=== PATIENT | female | born 1940 | race Caucasian/White ===

== ENCOUNTER 2016-07-16 00:52 | Inpatient (IN) | payer OTHER ==
[~2016-07-16] VITALS: Ht 160 cm; Wt 113.5 kg
[~2016-07-16 00:52] MED LIST: ALPRAZOLAM0.25 MG PO; APRESOLINE50 MG PO; ASCORBIC ACID500 M3 PO; ATIVAN1 MG PO; AVELOX400 MG PO; Advair HFA 115/21 IH; BENICAR HCT 401 EAC1 PO; CADUET 10/801 TABLET PO; COLACE100 MG PO; COMPAZINE10 MG PO; CYPROHEPTADINE H4 M1 PO; CYPROHEPTADINE H4 MG PO; DELTASONE20 MG PO; DETROL LA4 MG PO; DUONEB3 ML IH; EFFER-K 20 MEQ20 MEQ PO; FLEXERIL10 MG PO; FLEXERIL5 MG PO; FLOVENT 22120 INHALA IH; FUROSEMIDE40 MG PO; ISORDIL TITRADOS5 MG SL; ISORDIL5 MG PO; K-DUR20 MEQ PO; K-LOR,KLOR-CON20 MEQ PO; LANTUS 3 M100 UNITS/ SC; LANTUS 3 M100 UNITS1 SC; LANTUS100 UNIT/1 SQ; LASIX40 MG PO; LEVOTHROID,SYN0.2 MG PO; LIDOCAINE PO; LIDODERM 5% P1 PATCH TD; LIPITOR10 MG PO; LIPITOR80 MG PO; LOPRESSOR100 M1 PO; LUMIGAN 0.50 DROP/22 BOTH EYES; LYRICA50 MG PO; Lantus 3 ml Solostar SC; MACROBID100 MG PO; METOPROLOL TAR100 MG PO; MS CONTIN,ORAMO60 MG PO; MS CONTIN60 MG PO; MS Contin,Oramorph S PO; NEXIUM40 MG PO; NIFEDIPINE ER30 MG PO; NITROSTAT,NITR0.4 M1 SL; NITROSTAT0.4 MG SL; NORVASC10 MG PO; NOVOLOG PE100 UNITS/ SC; OxyCODONE PO; PERCOCET 5/31 TABLET PO; PERIACTIN4 MG PO; POTASSIUM CHLO10 ME4 PO; PRED MILD BOTH EYES; PREDNISONE20 MG PO; PROCHLORPERAZIN10 MG PO; PROVENTIL HFA6.7 GM IH; PROVENTIL,2.5 MG/0.5 IH; Pred Forte 1%,Omnipr BOTH EYES; RESTASIS 01 DROP/0.4 BOTH EYES; RESTASIS1 EACH OP; SANCTURA XR60 MG PO; SINGULAIR10 MG PO; SPIRIVA1 INHALATI IH; SYNTHROID100 MCG PO; SYNTHROID200 MCG PO; SYNTHROID50 MCG PO; TOPROL XL50 MG PO; Tessalon Perle PO; Toprol XL PO; Tylenol Regular Stre PO; VENTOLIN HFA18 GM IH; VITAMIN D35000 UNIT PO; VITAMIN D5000 UNIT PO; VITAMIN E100 UNIT PO; XANAX0.25 MG PO; XOPENEX1.25 MG/3 IH
[2016-07-16 01:11] LABS: HEMATOCRIT 41.1 % (36.0-46.0); MCHC 33.1 G/DL (30.0-36.0); MCV 84.7 FL (83-99); MEAN PLAT.VOLUME 10.9 uM^3 (9.5-12.4); PLATELET COUNT 210 K/uL (156-360); RBC DIS.WIDTH-CV 13.8 % (11.8-14.6); RBC DIS.WIDTH-SD 42.4 % (39-53); RED BLOOD COUNT 4.85 M/uL (3.80-5.20); WHITE BLOOD COUNT 8.3 K/uL (4.1-10.2)
[2016-07-16 01:20] LABS: CHLORIDE 101 mEq/L (99-109); POTASSIUM 3.5 mEq/L (3.7-5.4); SODIUM 138 mEq/L (136-147)
[2016-07-16 01:21] LABS: GLUCOSE 338 mg/dL (70-99)
[2016-07-16 01:23] LABS: ANION GAP 11 MEQ/L (2-14)
[2016-07-16 01:26] LABS: GFR ESTIMATE (CALCULATED) > 59 mL/min/; UREA NITROGEN (BUN) 12 mg/dL (9-23)
[2016-07-16 01:32] LABS: TROP-I INTERPRETATION NEGATIVE; TROPONIN-I < 0.01 ng/mL (0.0-0.30)
[2016-07-16 01:37] LABS: PROTHROMBIN TIME 10.4 (9.2-11.2); PTT 27.2 (25-32)
[2016-07-16] MEDS ORDERED: LYRICA50 MG PO (01:55)
[2016-07-16] MEDS ORDERED: NIFEDIPINE ER30 MG PO (01:56)
[2016-07-16 02:22] LABS: ADD MIUA? NO; BILIRUBIN NEGATIVE; BLOOD NEGATIVE; COLOR YELLOW ((YELLOW)); GLUCOSE (STRIP) >=1000; KETONES NEGATIVE; LEUKOCYTES NEGATIVE; NITRITE NEGATIVE; PROTEIN (STRIP) 30; SPECIFIC GRAVITY 1.025 (1.000-1.030); UCUL ADDED? NO; UROBILINOGEN 0.2 MG/DL (0.2-1.0)
[2016-07-16 16:15] VITALS: BP 155/72
[2016-07-16 23:00] VITALS: BP 148/65
[2016-07-17 06:43] LABS: HEMATOCRIT 38.2 % (36.0-46.0); MCHC 32.2 G/DL (30.0-36.0); MEAN PLAT.VOLUME 11.9 uM^3 (9.5-12.4); PLATELET COUNT 203 K/uL (156-360); RBC DIS.WIDTH-CV 14.5 % (11.8-14.6); RBC DIS.WIDTH-SD 46.3 % (39-53); RED BLOOD COUNT 4.39 M/uL (3.80-5.20)
[2016-07-17 06:46] LABS: WHITE BLOOD COUNT 11.4 K/uL (4.1-10.2)
[2016-07-17 07:15] LABS: ANION GAP 8 MEQ/L (2-14); CHLORIDE 94 MEQ/L (99-109); GFR ESTIMATE (CALCULATED) 46 mL/min/; GLUCOSE 398 mg/dL (70-99); SAMPLE HEMOLYSIS CHECK 0; SAMPLE ICTERIC CHECK 0; SAMPLE LIPEMIA CHECK 0
[2016-07-17 07:21] LABS: SODIUM 131 MEQ/L (136-147); UREA NITROGEN (BUN) 28 mg/dL (9-23)
[2016-07-17 07:25] VITALS: BP 148/65
[2016-07-17 09:57] LABS: POINT-OF-CARE METER ID UU13113702
[2016-07-17 09:57] LABS: POINT-OF-CARE METER ID UU13113702
[2016-07-17 14:15] LABS: ANION GAP 8 MEQ/L (2-14); CHLORIDE 93 MEQ/L (99-109); GFR ESTIMATE (CALCULATED) 39 mL/min/; POTASSIUM 5.1 MEQ/L (3.7-5.4); SAMPLE HEMOLYSIS CHECK 0; SAMPLE ICTERIC CHECK 0; SAMPLE LIPEMIA CHECK 0; SODIUM 128 MEQ/L (136-147); UREA NITROGEN (BUN) 35 mg/dL (9-23)
[2016-07-17 14:18] LABS: GLUCOSE 410 mg/dL (70-99)
[2016-07-17 15:45] VITALS: BP 128/66
[2016-07-17 19:34] LABS: Estimated Average Glucose 246 mg/dL (70-123); HEMOGLOBIN A1c (GLYCOHEMOGLOB) 10.2 % HGB (Below 5.7)
[2016-07-17 21:40] VITALS: BP 155/56
[2016-07-17 21:41] LABS: BASE EXCESS 3.8 mEq/L (-3 to +3); BICARBONATE 25.7 mEq/L (22-26); PCO2 30 mm Hg (35-45); PO2 > 610 mm Hg (80-100); SITE LR; pH 7.54 (7.35-7.45)
[2016-07-17 21:42] LABS: COMMENTS - BLOOD GASES C+; DEVICE MASK VENT; FI02 100 %; MODE SPONT; PEEP 5 CM/H20; PRES. SUPPORT 10 CM/H2O; TOTAL RESP RATE 29 resp/min
[2016-07-17 22:00] VITALS: BP 124/61
[2016-07-17 22:00] LABS: HEMATOCRIT 39.1 % (36.0-46.0); MCH 27.7 PG (29.0-34.0); MCHC 32.5 G/DL (30.0-36.0); MCV 85.4 FL (83-99); MEAN PLAT.VOLUME 11.5 uM^3 (9.5-12.4); RBC DIS.WIDTH-CV 14.7 % (11.8-14.6); RBC DIS.WIDTH-SD 45.5 % (39-53); RED BLOOD COUNT 4.58 M/uL (3.80-5.20)
[2016-07-17 22:07] LABS: D-DIMER ELISA 0.55 mg/L FEU (< 0.57)
[2016-07-17 22:20] LABS: PLATELET COUNT 277 K/uL (156-360); WHITE BLOOD COUNT 19.8 K/uL (4.1-10.2)
[2016-07-17 22:21] LABS: TROP-I INTERPRETATION NEGATIVE; TROPONIN-I < 0.01 ng/mL (0.0-0.30)
[2016-07-17 22:30] VITALS: BP 119/48
[2016-07-17 23:00] VITALS: BP 123/45
[2016-07-17 23:26] LABS: METH RESISTANT S AUREUS PCR NEGATIVE (NEGATIVE)
[2016-07-17 23:28] LABS: PROBE CHECK PASS; SPECIMEN PROCESSING CONTROL PASS
[2016-07-18] VITALS (11 sets, daily range): BP systolic 116–165; BP diastolic 47–82
[2016-07-18 05:01] LABS: ANION GAP 14 MEQ/L (2-14); CHLORIDE 93 MEQ/L (99-109); GFR ESTIMATE (CALCULATED) 31 mL/min/; GLUCOSE 305 mg/dL (70-99); POTASSIUM 5.3 MEQ/L (3.7-5.4); SAMPLE HEMOLYSIS CHECK 0; SAMPLE ICTERIC CHECK 0; SAMPLE LIPEMIA CHECK 0; SODIUM 129 MEQ/L (136-147); UREA NITROGEN (BUN) 44 mg/dL (9-23)
[2016-07-18 06:04] LABS: HEMATOCRIT 36.4 % (36.0-46.0); MCH 27.9 PG (29.0-34.0); MCHC 32.4 G/DL (30.0-36.0); MCV 86.1 FL (83-99); MEAN PLAT.VOLUME 11.8 uM^3 (9.5-12.4); PLATELET COUNT 216 K/uL (156-360); RBC DIS.WIDTH-CV 14.7 % (11.8-14.6); RED BLOOD COUNT 4.23 M/uL (3.80-5.20)
[2016-07-18 06:09] LABS: WHITE BLOOD COUNT 11.4 K/uL (4.1-10.2)
[2016-07-18 06:16] LABS: ANION GAP 9 MEQ/L (2-14); CHLORIDE 95 MEQ/L (99-109); GFR ESTIMATE (CALCULATED) 36 mL/min/; GLUCOSE 314 mg/dL (70-99); POTASSIUM 5.1 MEQ/L (3.7-5.4); SAMPLE HEMOLYSIS CHECK 0; SAMPLE ICTERIC CHECK 0; SAMPLE LIPEMIA CHECK 0; SODIUM 130 MEQ/L (136-147); UREA NITROGEN (BUN) 49 mg/dL (9-23)
[2016-07-18 12:18] LABS: POINT-OF-CARE METER ID UU14162636
[2016-07-18 16:32] LABS: BACTERIA NONE SEEN; EPITHELIAL CELLS RARE; MUCUS NONE SEEN; RED BLOOD CELLS NONE SEEN /HPF (0-5); WHITE BLOOD CELLS RARE /HPF (0-5)
[2016-07-18 16:33] LABS: CASTS NONE SEEN /LPF; CRYSTALS NONE SEEN
[2016-07-19] VITALS: BP 142/63
[2016-07-19 04:00] VITALS: BP 159/68
[2016-07-19 07:22] LABS: EOSINOPHIL (%) 0 % (0-5); HEMATOCRIT 38.2 % (36.0-46.0); IMMATURE GRANULOCYTE COUNT 0.1 K/uL; LYMPHOCYTE COUNT 0.4 K/uL (1.0-2.8); MCH 27.9 PG (29.0-34.0); MCHC 32.7 G/DL (30.0-36.0); MCV 85.3 FL (83-99); MEAN PLAT.VOLUME 11.6 uM^3 (9.5-12.4); MONOCYTE (%) 3.5 % (3-12); MONOCYTE COUNT 0.4 K/uL (0-0.8); NEUTROPHIL COUNT 10.6 K/uL (1.8-6.4); PLATELET COUNT 225 K/uL (156-360); RBC DIS.WIDTH-SD 46.9 % (39-53); RED BLOOD COUNT 4.48 M/uL (3.80-5.20); WHITE BLOOD COUNT 11.5 K/uL (4.1-10.2)
[2016-07-19 07:38] LABS: ANION GAP 9 MEQ/L (2-14); CHLORIDE 98 MEQ/L (99-109); GFR ESTIMATE (CALCULATED) 39 mL/min/; GLUCOSE 203 mg/dL (70-99); POTASSIUM 4.9 MEQ/L (3.7-5.4); SAMPLE HEMOLYSIS CHECK 0; SAMPLE ICTERIC CHECK 0; SAMPLE LIPEMIA CHECK 0; SODIUM 132 MEQ/L (136-147); UREA NITROGEN (BUN) 55 mg/dL (9-23)
[2016-07-19 08:00] VITALS: BP 139/69
[2016-07-19 11:53] LABS: POINT-OF-CARE METER ID UU14174225
[2016-07-19 12:00] VITALS: BP 146/67
[2016-07-19 15:00] VITALS: BP 140/70
[2016-07-19 16:41] LABS: POINT-OF-CARE METER ID UU14174225
[2016-07-19 19:58] VITALS: BP 133/67
[2016-07-20] VITALS: BP 159/73
[2016-07-20 04:00] VITALS: BP 154/77
[2016-07-20 07:53] VITALS: BP 146/65
[2016-07-20 10:22] LABS: ANION GAP 9 MEQ/L (2-14); CHLORIDE 99 MEQ/L (99-109); GFR ESTIMATE (CALCULATED) 42 mL/min/; GLUCOSE 218 mg/dL (70-99); POTASSIUM 4.7 MEQ/L (3.7-5.4); SAMPLE HEMOLYSIS CHECK 0; SAMPLE ICTERIC CHECK 0; SAMPLE LIPEMIA CHECK 0; SODIUM 135 MEQ/L (136-147); UREA NITROGEN (BUN) 55 mg/dL (9-23)
[2016-07-20 11:04] VITALS: BP 131/73
[2016-07-20 15:24] VITALS: BP 139/66
[2016-07-20 20:00] VITALS: BP 141/65
[2016-07-21] VITALS: BP 151/66
[2016-07-21 07:48] VITALS: BP 139/70
[2016-07-21 09:41] LABS: EOSINOPHIL (%) 0 % (0-5); HEMATOCRIT 40.6 % (36.0-46.0); IMMATURE GRANULOCYTE (%) 1.4 % (0.0-0.7); IMMATURE GRANULOCYTE COUNT 0.2 K/uL; LYMPHOCYTE COUNT 0.6 K/uL (1.0-2.8); MCH 28.3 PG (29.0-34.0); MCV 85.8 FL (83-99); MEAN PLAT.VOLUME 12.1 uM^3 (9.5-12.4); MONOCYTE (%) 9.3 % (3-12); NEUTROPHIL (%) 83.6 % (45-76); NEUTROPHIL COUNT 9.4 K/uL (1.8-6.4); PLATELET COUNT 234 K/uL (156-360); RBC DIS.WIDTH-CV 14.9 % (11.8-14.6); RBC DIS.WIDTH-SD 46.9 % (39-53); RED BLOOD COUNT 4.73 M/uL (3.80-5.20); WHITE BLOOD COUNT 11.2 K/uL (4.1-10.2)
[2016-07-21 09:58] LABS: ANION GAP 10 MEQ/L (2-14); CHLORIDE 98 MEQ/L (99-109); MAGNESIUM 2.5 mg/dl (1.3-2.7); POTASSIUM 4.5 MEQ/L (3.7-5.4); SAMPLE HEMOLYSIS CHECK 0; SAMPLE ICTERIC CHECK 0; SAMPLE LIPEMIA CHECK 0; SODIUM 136 MEQ/L (136-147)
[2016-07-21 10:04] LABS: GFR ESTIMATE (CALCULATED) 46 mL/min/; GLUCOSE 145 mg/dL (70-99); UREA NITROGEN (BUN) 56 mg/dL (9-23)
[2016-07-21 15:19] VITALS: BP 142/68
[2016-07-21 21:41] LABS: POINT-OF-CARE METER ID UU14174225
[2016-07-21 23:37] VITALS: BP 150/80
[2016-07-22 07:28] VITALS: BP 146/82
[2016-07-22 16:00] VITALS: BP 153/71
[2016-07-23 00:31] VITALS: BP 141/64
[2016-07-23 07:55] VITALS: BP 144/67
[2016-07-23 16:07] VITALS: BP 145/67
[2016-07-24] VITALS: BP 156/77
[2016-07-24 07:33] LABS: EOSINOPHIL (%) 0 % (0-5); IMMATURE GRANULOCYTE (%) 2.3 % (0.0-0.7); IMMATURE GRANULOCYTE COUNT 0.3 K/uL; LYMPHOCYTE COUNT 1.5 K/uL (1.0-2.8); MCH 27.6 PG (29.0-34.0); MCHC 32.7 G/DL (30.0-36.0); MCV 84.5 FL (83-99); MEAN PLAT.VOLUME 12.3 uM^3 (9.5-12.4); MONOCYTE (%) 6.9 % (3-12); NEUTROPHIL (%) 80.6 % (45-76); NEUTROPHIL COUNT 11.9 K/uL (1.8-6.4); PLATELET COUNT 229 K/uL (156-360); RBC DIS.WIDTH-SD 46.4 % (39-53); RED BLOOD COUNT 4.85 M/uL (3.80-5.20)
[2016-07-24 07:34] LABS: WHITE BLOOD COUNT 14.7 K/uL (4.1-10.2)
[2016-07-24 07:37] VITALS: BP 144/76
[2016-07-24 07:49] LABS: ANION GAP 9 MEQ/L (2-14); CHLORIDE 94 MEQ/L (99-109); GFR ESTIMATE (CALCULATED) 42 mL/min/; GLUCOSE 201 mg/dL (70-99); POTASSIUM 4.2 MEQ/L (3.7-5.4); SAMPLE HEMOLYSIS CHECK 0; SAMPLE ICTERIC CHECK 0; SAMPLE LIPEMIA CHECK 0; SODIUM 137 MEQ/L (136-147); UREA NITROGEN (BUN) 61 mg/dL (9-23)
[2016-07-24 08:08] LABS: HEMATOLOGY COMMENT 1 SMEAR COMPATIBLE; USER ID SDF
[2016-07-24 15:14] VITALS: BP 163/67
[2016-07-24 23:56] LABS: CHLORIDE 93 mEq/L (99-109); POTASSIUM 3.6 mEq/L (3.7-5.4); SODIUM 141 mEq/L (136-147)
[2016-07-24 23:57] LABS: MAGNESIUM 2.5 mg/dL (1.3-2.7)
[2016-07-25] VITALS: BP 150/63
[2016-07-25] LABS: ANION GAP 9 MEQ/L (2-14); TOTAL BILIRUBIN 0.7 mg/dL (0.0-1.0)
[2016-07-25 00:02] LABS: ALKALINE PHOSPHATASE 81 IU/L (3-129); GFR ESTIMATE (CALCULATED) 46 mL/min/
[2016-07-25 00:04] LABS: DIRECT BILIRUBIN 0.3 mg/dL (0.0-0.3); UREA NITROGEN (BUN) 58 mg/dL (9-23)
[2016-07-25 00:06] LABS: LIPASE 25 U/L (1.0-51.0)
[2016-07-25 00:15] LABS: GLUCOSE 104 mg/dL (70-99)
[2016-07-25 00:49] LABS: POINT-OF-CARE METER ID UU14174225
[2016-07-25 06:37] LABS: POINT-OF-CARE METER ID UU14174225
[2016-07-25 06:40] LABS: MEAN PLAT.VOLUME 11.8 uM^3 (9.5-12.4); PLATELET COUNT 245 K/uL (156-360)
[2016-07-25 07:30] LABS: ALKALINE PHOSPHATASE 69 IU/L (3-129); ANION GAP 10 MEQ/L (2-14); CHLORIDE 95 MEQ/L (99-109); GFR ESTIMATE (CALCULATED) 57 mL/min/; POTASSIUM 3.7 MEQ/L (3.7-5.4); SAMPLE HEMOLYSIS CHECK 0; SAMPLE ICTERIC CHECK 0; SAMPLE LIPEMIA CHECK 0; SODIUM 144 MEQ/L (136-147); TOTAL BILIRUBIN 0.8 MG/DL (0.0-1.0); UREA NITROGEN (BUN) 48 mg/dL (9-23)
[2016-07-25 07:33] LABS: GLUCOSE 61 mg/dL (70-99)
[2016-07-25 08:05] LABS: HEMATOCRIT 44.3 % (36.0-46.0); MCH 28.5 PG (29.0-34.0); MCHC 33.4 G/DL (30.0-36.0); MCV 85.4 FL (83-99); RBC DIS.WIDTH-CV 14.8 % (11.8-14.6); RBC DIS.WIDTH-SD 45.9 % (39-53); RED BLOOD COUNT 5.19 M/uL (3.80-5.20)
[2016-07-25 08:07] LABS: BASE EXCESS 17.6 mEq/L (-3 to +3); METHEMOGLOBIN 2.3 % (0-1.5); pH 7.51 (7.35-7.45)
[2016-07-25 08:07] LABS: WHITE BLOOD COUNT 31.3 K/uL (4.1-10.2)
[2016-07-25 08:08] LABS: BICARBONATE 43.9 mEq/L (22-26); COMMENTS - BLOOD GASES A+C+; DEVICE NC; O2 FLOW 3 L/MIN; PCO2 55 mm Hg (35-45); PO2 58 mm Hg (80-100); SITE LR; TOTAL RESP RATE 18 resp/min
[2016-07-25 08:16] LABS: EOSINOPHIL (%) 0 % (0-5); HEMATOLOGY COMMENT 1 SMEAR COMPATIBLE; IMMATURE GRANULOCYTE (%) 1.5 % (0.0-0.7); IMMATURE GRANULOCYTE COUNT 0.5 K/uL; LYMPHOCYTE COUNT 3.1 K/uL (1.0-2.8); MONOCYTE (%) 4.1 % (3-12); MONOCYTE COUNT 1.3 K/uL (0-0.8); NEUTROPHIL (%) 84.4 % (45-76); NEUTROPHIL COUNT 26.4 K/uL (1.8-6.4); USER ID SDF
[2016-07-25 08:29] VITALS: BP 147/87
[2016-07-25 15:30] VITALS: BP 135/57
[2016-07-25 17:37] LABS: ADD MIUA? YES; BILIRUBIN NEGATIVE; BLOOD NEGATIVE; COLOR YELLOW ((YELLOW)); GLUCOSE (STRIP) NEGATIVE; KETONES NEGATIVE; LEUKOCYTES NEGATIVE; NITRITE NEGATIVE; PH, URINE 7.5 (5-8); PROTEIN (STRIP) TRACE; SPECIFIC GRAVITY 1.018 (1.000-1.030); UROBILINOGEN 0.2 MG/DL (0.2-1.0)
[2016-07-25 17:38] LABS: BACTERIA NONE SEEN; CASTS NONE SEEN /LPF; CRYSTALS NONE SEEN; EPITHELIAL CELLS RARE; MUCUS NONE SEEN; PATHOLOGICAL CAST NONE SEEN; RED BLOOD CELLS 0-5 /HPF (0-5); SMALL ROUND CELL NONE SEEN; UCUL ADDED? NO; WHITE BLOOD CELLS 0-5 /HPF (0-5); YEAST-LIKE CELL NONE SEEN
[2016-07-25 23:24] VITALS: BP 160/72
[2016-07-26 07:27] LABS: HEMATOCRIT 40.2 % (36.0-46.0); MCH 27.3 PG (29.0-34.0); MCHC 32.1 G/DL (30.0-36.0); MCV 85.2 FL (83-99); MEAN PLAT.VOLUME 12.1 uM^3 (9.5-12.4); PLATELET COUNT 196 K/uL (156-360); RBC DIS.WIDTH-SD 47.1 % (39-53); RED BLOOD COUNT 4.72 M/uL (3.80-5.20)
[2016-07-26 07:29] LABS: WHITE BLOOD COUNT 16.2 K/uL (4.1-10.2)
[2016-07-26 07:52] LABS: ANION GAP 11 MEQ/L (2-14); CHLORIDE 95 MEQ/L (99-109); GFR ESTIMATE (CALCULATED) > 59 mL/min/; POTASSIUM 3.6 MEQ/L (3.7-5.4); SAMPLE HEMOLYSIS CHECK 0; SAMPLE ICTERIC CHECK 0; SAMPLE LIPEMIA CHECK 0; SODIUM 138 MEQ/L (136-147); UREA NITROGEN (BUN) 37 mg/dL (9-23)
[2016-07-26 08:01] LABS: GLUCOSE 259 mg/dL (70-99)
[2016-07-26 11:36] LABS: POINT-OF-CARE METER ID UU14174225
[2016-07-26 15:00] VITALS: BP 147/66
[2016-07-26 18:32] LABS: HEMATOCRIT 40.4 % (36.0-46.0); MCH 28.5 PG (29.0-34.0); MCHC 33.7 G/DL (30.0-36.0); MCV 84.7 FL (83-99); PLATELET COUNT 202 K/uL (156-360); RBC DIS.WIDTH-CV 14.6 % (11.8-14.6); RBC DIS.WIDTH-SD 45.6 % (39-53); RED BLOOD COUNT 4.77 M/uL (3.80-5.20); WHITE BLOOD COUNT 16.3 K/uL (4.1-10.2)
[2016-07-26 18:57] LABS: EOSINOPHIL (%) 0 % (0-5); HEMATOLOGY COMMENT 1 SMEAR COMPATIBLE; IMMATURE GRANULOCYTE (%) 4.7 % (0.0-0.7); IMMATURE GRANULOCYTE COUNT 0.8 K/uL; LYMPHOCYTE COUNT 1.3 K/uL (1.0-2.8); MONOCYTE (%) 3.3 % (3-12); MONOCYTE COUNT 0.5 K/uL (0-0.8); NEUTROPHIL COUNT 13.7 K/uL (1.8-6.4); PLAT.SUFFICIENCY NORMAL; USER ID NJV
[2016-07-26 18:58] LABS: TROP-I INTERPRETATION NEGATIVE; TROPONIN-I 0.08 ng/mL (0.0-0.30)
[2016-07-26 19:00] LABS: ANION GAP 18 MEQ/L (2-14); CHLORIDE 94 MEQ/L (99-109); POTASSIUM 3.7 MEQ/L (3.7-5.4); SAMPLE HEMOLYSIS CHECK 0; SAMPLE ICTERIC CHECK 0; SAMPLE LIPEMIA CHECK 0; SODIUM 138 MEQ/L (136-147)
[2016-07-26 19:06] LABS: GFR ESTIMATE (CALCULATED) 57 mL/min/; GLUCOSE 343 mg/dL (70-99); UREA NITROGEN (BUN) 39 mg/dL (9-23)
[2016-07-26 23:34] VITALS: BP 146/67
[2016-07-27 07:15] LABS: HEMATOCRIT 36.5 % (36.0-46.0); MCH 27.1 PG (29.0-34.0); MCHC 32.1 G/DL (30.0-36.0); MCV 84.5 FL (83-99); MEAN PLAT.VOLUME 11.6 uM^3 (9.5-12.4); PLATELET COUNT 175 K/uL (156-360); RBC DIS.WIDTH-CV 14.5 % (11.8-14.6); RBC DIS.WIDTH-SD 44.8 % (39-53); RED BLOOD COUNT 4.32 M/uL (3.80-5.20); WHITE BLOOD COUNT 14.7 K/uL (4.1-10.2)
[2016-07-27 07:41] LABS: ALKALINE PHOSPHATASE 56 IU/L (3-129); ANION GAP 6 MEQ/L (2-14); CHLORIDE 100 MEQ/L (99-109); DIRECT BILIRUBIN 0.1 mg/dL (0.0-0.3); GFR ESTIMATE (CALCULATED) > 59 mL/min/; GLUCOSE 222 mg/dL (70-99); LIPASE 23 U/L (1.0-51.0); POTASSIUM 3.8 MEQ/L (3.7-5.4); SAMPLE HEMOLYSIS CHECK 0; SAMPLE ICTERIC CHECK 0; SAMPLE LIPEMIA CHECK 0; SODIUM 137 MEQ/L (136-147); UREA NITROGEN (BUN) 38 mg/dL (9-23)
[2016-07-27 07:43] LABS: TOTAL BILIRUBIN 0.6 MG/DL (0.0-1.0)
[2016-07-27 07:51] VITALS: BP 130/64
[2016-07-27 15:06] VITALS: BP 148/88
[2016-07-27 23:39] VITALS: BP 129/62
[2016-07-28 06:28] LABS: HEMATOCRIT 37.3 % (36.0-46.0); MCH 28.4 PG (29.0-34.0); MCHC 33.8 G/DL (30.0-36.0); MCV 84.2 FL (83-99); MEAN PLAT.VOLUME 11.6 uM^3 (9.5-12.4); PLATELET COUNT 157 K/uL (156-360); RBC DIS.WIDTH-CV 14.5 % (11.8-14.6); RBC DIS.WIDTH-SD 44.6 % (39-53); RED BLOOD COUNT 4.43 M/uL (3.80-5.20); WHITE BLOOD COUNT 15.8 K/uL (4.1-10.2)
[2016-07-28 06:56] LABS: ANION GAP 9 MEQ/L (2-14); CHLORIDE 97 MEQ/L (99-109); GFR ESTIMATE (CALCULATED) > 59 mL/min/; POTASSIUM 3.9 MEQ/L (3.7-5.4); SAMPLE HEMOLYSIS CHECK 0; SAMPLE ICTERIC CHECK 0; SAMPLE LIPEMIA CHECK 0; SODIUM 136 MEQ/L (136-147); UREA NITROGEN (BUN) 37 mg/dL (9-23)
[2016-07-28 06:57] LABS: GLUCOSE 120 mg/dL (70-99)
[2016-07-28 08:23] VITALS: BP 147/64
[2016-07-28 15:09] VITALS: BP 130/63
[2016-07-28 21:14] LABS: POINT-OF-CARE METER ID UU14174225
[2016-07-28 23:56] VITALS: BP 127/71
[2016-07-29 08:40] VITALS: BP 124/58
[2016-07-29 09:34] LABS: POINT-OF-CARE METER ID UU14174225
[2016-07-29 10:19] LABS: AMPHETAMINES QUANT VALUE 0 NG/ML; BARBITUATES QUANT VALUE 0 NG/ML; BENZODIAZEPINES QUANT VALUE 0 NG/ML; BENZODIAZEPINES, URINE SCREEN Negative (200 ng/mL); MARIJUANA QUANT VALUE 0 NG/ML; PHENCYCLIDINE QUANT VALUE 0 NG/ML
[2016-07-29 16:03] VITALS: BP 134/58
[2016-07-29 16:52] LABS: POINT-OF-CARE METER ID UU14174225
[2016-07-29 20:19] VITALS: BP 128/58
[2016-07-30 00:24] VITALS: BP 121/62
[2016-07-30 07:54] VITALS: BP 116/67
[2016-07-30 15:32] VITALS: BP 131/83
[2016-07-31 04:34] LABS: HEMATOCRIT 36.3 % (36.0-46.0); MCH 27.8 PG (29.0-34.0); MCHC 32.5 G/DL (30.0-36.0); MCV 85.4 FL (83-99); MEAN PLAT.VOLUME 11.1 uM^3 (9.5-12.4); PLATELET COUNT 131 K/uL (156-360); RBC DIS.WIDTH-CV 14.3 % (11.8-14.6); RBC DIS.WIDTH-SD 43.9 % (39-53); RED BLOOD COUNT 4.25 M/uL (3.80-5.20); WHITE BLOOD COUNT 11.3 K/uL (4.1-10.2)
[2016-07-31 04:45] LABS: CHLORIDE 102 mEq/L (99-109); POTASSIUM 4.4 mEq/L (3.7-5.4); SODIUM 137 mEq/L (136-147)
[2016-07-31 04:47] LABS: GLUCOSE 136 mg/dL (70-99)
[2016-07-31 04:48] LABS: ANION GAP 6 MEQ/L (2-14)
[2016-07-31 04:50] LABS: GFR ESTIMATE (CALCULATED) > 59 mL/min/
[2016-07-31 04:51] LABS: UREA NITROGEN (BUN) 29 mg/dL (9-23)
[2016-07-31 08:00] VITALS: BP 124/64
[2016-07-31 16:19] LABS: POINT-OF-CARE METER ID UU14174225
[2016-07-31 22:33] LABS: POINT-OF-CARE METER ID UU14174225
[2016-07-31 23:07] VITALS: BP 144/67
[2016-08-01 07:51] VITALS: BP 131/69
[2016-08-01 16:28] VITALS: BP 134/67
[2016-08-01] MEDS ORDERED: LEVETIRACETAM500 MG PO (17:11)
[2016-08-01] MEDS ORDERED: POLYETHYLENE GL17 GM PO (17:12)
[2016-08-01] MEDS ORDERED: GUAIFENESIN WI120 M1 PO (17:12)
[2016-08-01] MEDS ORDERED: PREDNISONE20 MG PO (17:13)
[2016-08-01] MEDS ORDERED: NEXIUM40 MG PO (17:22)
[2016-08-01] MEDS ORDERED: MORPHINE SULFAT15 M1 PO (17:24)
== END 2016-08-01 18:25 | disposition home or self-care (01) | DRG 190 ==
LOC: EME → EDBD 00:52 → EME 00:52 → 2EAST 03:59 → 4WEST 03:59 → EDOF 03:59 → 5SOUTH 03:59 → 2EAST 15:58 → 4WEST 07-17 21:29 → 5SOUTH 07-18 18:08
PROVIDERS: Emergency Medicine; Family Medicine; Hospitalist; Internal Medicine; Internal Medicine Critical Care Medicine; Nurse Practitioner Adult Health; Pediatrics; Physician Assistant; Physician Assistant Medical
DX: J44.1 Chronic obstructive pulmonary disease with (acute) exacerbation (principal); J96.01 Acute respiratory failure with hypoxia; G93.40 Encephalopathy, unspecified; J69.0 Pneumonitis due to inhalation of food and vomit; A41.9 Sepsis, unspecified organism; J98.11 Atelectasis; I50.32 Chronic diastolic (congestive) heart failure; G82.20 Paraplegia, unspecified; E66.2 Morbid (severe) obesity with alveolar hypoventilation; F11.20 Opioid dependence, uncomplicated; Z68.41 Body mass index [BMI] 40.0-44.9, adult; E78.5 Hyperlipidemia, unspecified; E87.6 Hypokalemia; K21.9 Gastro-esophageal reflux disease without esophagitis; H54.41 Blindness, right eye, normal vision left eye; I10 Essential (primary) hypertension; E11.69 Type 2 diabetes mellitus with other specified complication; R07.89 Other chest pain; I25.119 Atherosclerotic heart disease of native coronary artery with unspecified angina pectoris; E78.2 Mixed hyperlipidemia; R60.0 Localized edema; I48.91 Unspecified atrial fibrillation; Z88.0 Allergy status to penicillin; Z99.3 Dependence on wheelchair; Z74.01 Bed confinement status; Z88.6 Allergy status to analgesic agent; Z88.1 Allergy status to other antibiotic agents; R35.0 Frequency of micturition; N39.41 Urge incontinence; I27.2 Other secondary pulmonary hypertension; R56.9 Unspecified convulsions; H40.9 Unspecified glaucoma; R33.9 Retention of urine, unspecified; I89.0 Lymphedema, not elsewhere classified; H92.01 Otalgia, right ear; R04.0 Epistaxis; R13.10 Dysphagia, unspecified; R53.83 Other fatigue
CPT/HCPCS: 36600; 70450; 70486; 71010; 71020; 71250; 73610; 73630; 74176; 76705; 80048; 80048 91; 80053; 80076; 81003; 82040; 82248; 82803; 82948; 83036; 83605; 83690; 83735; 83880; 84100; 84484; 85025; 85027; 85379; 85610; 85730; 87040; 87641; 92610 GN; 93005; 94002; 94010; 94640; 94640 76; 94644; 94799; 95819; 97530 GP; 99202; 99281; 99284; C9113; J0692; J1626; J1644; J1815; J1940; J1953; J2060; J2270; J2310; J2405; J2920; J2930; J3010; J3370; J7030; J7050; J7120; J7512; Q0164

== ENCOUNTER 2017-09-26 18:25 | Emergency (ER) | payer OTHER ==
[~2017-09-26] VITALS: Ht 160 cm; Wt 111.0 kg
[~2017-09-26 18:25] MED LIST changes: +GUAIFENESIN WI120 M1 PO; +LEVETIRACETAM500 MG PO; +MORPHINE SULFAT15 M1 PO; +POLYETHYLENE GL17 GM PO
[2017-09-26 21:08] LABS: HEMATOCRIT 35.5 % (36.0-46.0); HEMOGLOBIN 11.8 G/DL (11.9-15.5); MCH 27.4 PG (29.0-34.0); MCHC 33.2 G/DL (30.0-36.0); MCV 82.6 FL (83-99); PLATELET COUNT 198 K/uL (156-360); RBC DIS.WIDTH-CV 14.4 % (11.8-14.6); RBC DIS.WIDTH-SD 43.2 % (39-53); WHITE BLOOD COUNT 8.3 K/uL (4.1-10.2)
[2017-09-26 21:24] LABS: CHLORIDE 103 mEq/L (99-109); POTASSIUM 3.7 mEq/L (3.7-5.4); SODIUM 139 mEq/L (136-147)
[2017-09-26 21:26] LABS: GLUCOSE 336 mg/dL (70-99)
[2017-09-26 21:30] LABS: CREATININE 0.8 mg/dL (0.6-1.3); GFR ESTIMATE (CALCULATED) > 59 mL/min/
[2017-09-26 21:31] LABS: UREA NITROGEN (BUN) 5 mg/dL (9-23)
[2017-09-26 21:32] LABS: TROP-I INTERPRETATION NEGATIVE; TROPONIN-I 0.02 ng/mL (0.0-0.30)
[2017-09-27 00:15] LABS: APPEARANCE CLEAR ((CLEAR)); BILIRUBIN NEGATIVE; BLOOD NEGATIVE; COLOR YELLOW ((YELLOW)); GLUCOSE (STRIP) >=500; KETONES 5; LEUKOCYTES NEGATIVE; NITRITE NEGATIVE; PROTEIN (STRIP) 30; SPECIFIC GRAVITY 1.006 (1.000-1.030); UCUL ADDED? NO; UROBILINOGEN 0.2 MG/DL (0.2-1.0)
[2017-09-27] MEDS ORDERED: PERCOCET 5/31 TABLET PO (00:46)
[2017-09-27] MEDS ORDERED: ALDACTONE50 MG PO (00:46)
[2017-09-27 08:52] VITALS: BP 191/89
[2017-09-27] MEDS ORDERED: LASIX40 MG PO (08:55)
== END 2017-09-27 09:14 | disposition home or self-care (01) ==
LOC: EME 18:25
PROVIDERS: Emergency Medicine
DX: R60.0 Localized edema (principal); E11.9 Type 2 diabetes mellitus without complications; Z79.4 Long term (current) use of insulin; I10 Essential (primary) hypertension; E66.01 Morbid (severe) obesity due to excess calories; Z68.41 Body mass index [BMI] 40.0-44.9, adult; J44.9 Chronic obstructive pulmonary disease, unspecified; E78.5 Hyperlipidemia, unspecified; Z86.73 Personal history of transient ischemic attack (TIA), and cerebral infarction without residual deficits; H54.8 Legal blindness, as defined in USA; F32.9 Major depressive disorder, single episode, unspecified; Z91.040 Latex allergy status; Z88.1 Allergy status to other antibiotic agents; Z88.0 Allergy status to penicillin; Z88.6 Allergy status to analgesic agent
CPT/HCPCS: 71046; 80048; 81003; 84484; 85027; 87502; 99281; 99285; J2270

== ENCOUNTER 2018-01-11 17:20 | Inpatient (IN) | payer OTHER ==
[~2018-01-11] VITALS: Ht 162.6 cm; Wt 111.3 kg
[~2018-01-11 17:20] MED LIST changes: +ALDACTONE50 MG PO
[2018-01-11 18:53] LABS: BASOPHIL (%) 0 % (0-1); EOSINOPHIL (%) 1.1 % (0-5); EOSINOPHIL COUNT 0.1 K/uL (0-0.3); HEMATOCRIT 38.5 % (36.0-46.0); HEMOGLOBIN 12.8 G/DL (11.9-15.5); IMMATURE GRANULOCYTE (%) 0.3 % (0.0-0.7); LYMPHOCYTE (%) 10.9 % (15-42); LYMPHOCYTE COUNT 0.8 K/uL (1.0-2.8); MCH 27.8 PG (29.0-34.0); MCHC 33.2 G/DL (30.0-36.0); MCV 83.7 FL (83-99); MONOCYTE (%) 8.7 % (3-12); MONOCYTE COUNT 0.6 K/uL (0-0.8); NEUTROPHIL COUNT 5.5 K/uL (1.8-6.4); PLATELET COUNT 185 K/uL (156-360); RBC DIS.WIDTH-CV 13.8 % (11.8-14.6); RBC DIS.WIDTH-SD 42.1 % (39-53)
[2018-01-11 19:03] LABS: CHLORIDE 99 mEq/L (99-109); SODIUM 136 mEq/L (136-147)
[2018-01-11 19:08] LABS: GFR ESTIMATE (CALCULATED) 57 mL/min/
[2018-01-11 19:09] LABS: UREA NITROGEN (BUN) 7 mg/dL (9-23)
[2018-01-11 19:11] LABS: GLUCOSE 422 mg/dL (70-99)
[2018-01-11] MEDS ORDERED: MORPHINE SULFAT60 MG PO (21:00)
[2018-01-11 21:04] LABS: APPEARANCE SL.HAZY ((CLEAR)); BILIRUBIN NEGATIVE; BLOOD SMALL; COLOR YELLOW ((YELLOW)); GLUCOSE (STRIP) >=500; KETONES 20; LEUKOCYTES TRACE; NITRITE NEGATIVE; PROTEIN (STRIP) 100; SPECIFIC GRAVITY 1.026 (1.000-1.030); UROBILINOGEN 0.2 MG/DL (0.2-1.0)
[2018-01-11 21:07] LABS: TROP-I INTERPRETATION NEGATIVE; TROPONIN-I 0.02 ng/mL (0.0-0.30)
[2018-01-11 21:56] LABS: BACTERIA RARE /HPF; EPITHELIAL CELLS 1+ /HPF; MUCUS TRACE /LPF; RED BLOOD CELLS 0-5 /HPF (0-5); UCUL ADDED? YES
[2018-01-12 00:06] VITALS: BP 139/75
[2018-01-12 05:54] LABS: BASOPHIL (%) 0.1 % (0-1); EOSINOPHIL (%) 0 % (0-5); IMMATURE GRANULOCYTE (%) 0.7 % (0.0-0.7); LYMPHOCYTE (%) 2.8 % (15-42); LYMPHOCYTE COUNT 0.3 K/uL (1.0-2.8); MCH 26.8 PG (29.0-34.0); MCHC 31.7 G/DL (30.0-36.0); MCV 84.5 FL (83-99); MONOCYTE (%) 1.1 % (3-12); MONOCYTE COUNT 0.1 K/uL (0-0.8); NEUTROPHIL (%) 95.3 % (45-76); NEUTROPHIL COUNT 8.5 K/uL (1.8-6.4); PLATELET COUNT 203 K/uL (156-360); RBC DIS.WIDTH-CV 13.8 % (11.8-14.6); RBC DIS.WIDTH-SD 42.6 % (39-53); RED BLOOD COUNT 4.85 M/uL (3.80-5.20); WHITE BLOOD COUNT 8.9 K/uL (4.1-10.2)
[2018-01-12 06:31] LABS: CHLORIDE 98 MEQ/L (99-109); CREATININE 0.9 MG/DL (0.6-1.3); GFR ESTIMATE (CALCULATED) > 59 mL/min/; GLUCOSE 356 mg/dL (70-99); SODIUM 137 MEQ/L (136-147); UREA NITROGEN (BUN) 9 mg/dL (9-23)
[2018-01-12 08:04] VITALS: BP 150/65
[2018-01-12 11:54] VITALS: BP 133/92
[2018-01-12 15:14] VITALS: BP 142/65
[2018-01-12 19:16] VITALS: BP 176/77
[2018-01-12 23:43] VITALS: BP 133/74
[2018-01-13] VITALS (7 sets, daily range): BP systolic 133–164; BP diastolic 61–84
[2018-01-13 06:50] LABS: HEMATOCRIT 35.9 % (36.0-46.0); HEMOGLOBIN 11.7 G/DL (11.9-15.5); MCHC 32.6 G/DL (30.0-36.0); MCV 82.9 FL (83-99); PLATELET COUNT 193 K/uL (156-360); RBC DIS.WIDTH-CV 14.1 % (11.8-14.6); RBC DIS.WIDTH-SD 42.7 % (39-53); RED BLOOD COUNT 4.33 M/uL (3.80-5.20); WHITE BLOOD COUNT 10.9 K/uL (4.1-10.2)
[2018-01-13 07:17] LABS: CHLORIDE 96 MEQ/L (99-109); CREATININE 0.9 MG/DL (0.6-1.3); GFR ESTIMATE (CALCULATED) > 59 mL/min/; GLUCOSE 323 mg/dL (70-99); POTASSIUM 4.6 MEQ/L (3.7-5.4); SODIUM 134 MEQ/L (136-147)
[2018-01-13 07:18] LABS: UREA NITROGEN (BUN) 22 mg/dL (9-23)
[2018-01-14 03:30] VITALS: BP 159/74
[2018-01-14 05:35] LABS: BASOPHIL (%) 0.1 % (0-1); EOSINOPHIL (%) 0.4 % (0-5); EOSINOPHIL COUNT 0.1 K/uL (0-0.3); HEMATOCRIT 36.6 % (36.0-46.0); HEMOGLOBIN 11.8 G/DL (11.9-15.5); IMMATURE GRANULOCYTE (%) 0.6 % (0.0-0.7); LYMPHOCYTE (%) 11.2 % (15-42); LYMPHOCYTE COUNT 1.4 K/uL (1.0-2.8); MCH 27.1 PG (29.0-34.0); MCHC 32.2 G/DL (30.0-36.0); MCV 83.9 FL (83-99); MONOCYTE (%) 7.2 % (3-12); MONOCYTE COUNT 0.9 K/uL (0-0.8); NEUTROPHIL (%) 80.5 % (45-76); NEUTROPHIL COUNT 9.7 K/uL (1.8-6.4); PLATELET COUNT 222 K/uL (156-360); RBC DIS.WIDTH-CV 14.5 % (11.8-14.6); RBC DIS.WIDTH-SD 44.4 % (39-53); RED BLOOD COUNT 4.36 M/uL (3.80-5.20)
[2018-01-14 06:08] LABS: CHLORIDE 99 MEQ/L (99-109); CREATININE 0.9 MG/DL (0.6-1.3); GFR ESTIMATE (CALCULATED) > 59 mL/min/; MAGNESIUM 1.9 mg/dl (1.3-2.7); POTASSIUM 4.2 MEQ/L (3.7-5.4); SODIUM 139 MEQ/L (136-147); UREA NITROGEN (BUN) 28 mg/dL (9-23)
[2018-01-14 06:29] LABS: GLUCOSE 127 mg/dL (70-99)
[2018-01-14 07:39] VITALS: BP 133/61
[2018-01-14 09:53] LABS: HEMOGLOBIN A1c (GLYCOHEMOGLOB) 13.5 % (Below 5.7)
[2018-01-14 15:22] VITALS: BP 130/62
[2018-01-14 23:37] VITALS: BP 121/58
[2018-01-15 05:48] LABS: BASOPHIL (%) 0.1 % (0-1); EOSINOPHIL (%) 1.6 % (0-5); EOSINOPHIL COUNT 0.1 K/uL (0-0.3); HEMATOCRIT 38.4 % (36.0-46.0); HEMOGLOBIN 12.2 G/DL (11.9-15.5); IMMATURE GRANULOCYTE (%) 0.6 % (0.0-0.7); LYMPHOCYTE (%) 14.7 % (15-42); LYMPHOCYTE COUNT 1.3 K/uL (1.0-2.8); MCH 26.9 PG (29.0-34.0); MCHC 31.8 G/DL (30.0-36.0); MCV 84.6 FL (83-99); MONOCYTE (%) 8.5 % (3-12); MONOCYTE COUNT 0.8 K/uL (0-0.8); NEUTROPHIL (%) 74.5 % (45-76); NEUTROPHIL COUNT 6.7 K/uL (1.8-6.4); PLATELET COUNT 208 K/uL (156-360); RBC DIS.WIDTH-CV 14.6 % (11.8-14.6); RBC DIS.WIDTH-SD 44.9 % (39-53); RED BLOOD COUNT 4.54 M/uL (3.80-5.20); WHITE BLOOD COUNT 8.9 K/uL (4.1-10.2)
[2018-01-15 06:15] LABS: CHLORIDE 97 MEQ/L (99-109); CREATININE 0.8 MG/DL (0.6-1.3); GFR ESTIMATE (CALCULATED) > 59 mL/min/; GLUCOSE 123 mg/dL (70-99); POTASSIUM 3.8 MEQ/L (3.7-5.4); SODIUM 139 MEQ/L (136-147); UREA NITROGEN (BUN) 29 mg/dL (9-23)
[2018-01-15 08:09] VITALS: BP 136/63
[2018-01-15 16:03] VITALS: BP 165/72
[2018-01-15 20:36] VITALS: BP 172/85
[2018-01-15 23:18] VITALS: BP 133/70
[2018-01-16 07:55] VITALS: BP 143/74
[2018-01-16] MEDS ORDERED: LEVAQUIN750 MG PO (09:40)
[2018-01-16] MEDS ORDERED: FLEXERIL5 MG PO (09:41)
[2018-01-16] MEDS ORDERED: TRAMADOL HCL50 MG PO (10:44)
[2018-01-16] MEDS ORDERED: HYDROCORTISONE30 G1 TP (13:41)
== END 2018-01-16 15:48 | disposition home health service (06) | DRG 603 ==
LOC: EME 17:20 → 5SOUTH 21:32 → EDOF 21:32 → ENRESERV 21:42 → 5SOUTH 23:47
PROVIDERS: Emergency Medicine; Hospitalist; Physician Assistant; Physician Assistant Medical; Student in an Organized Health Care Education/Training Program
DX: L03.116 Cellulitis of left lower limb (principal); B96.5 Pseudomonas (aeruginosa) (mallei) (pseudomallei) as the cause of diseases classified elsewhere; I89.0 Lymphedema, not elsewhere classified; N39.0 Urinary tract infection, site not specified; B96.1 Klebsiella pneumoniae [K. pneumoniae] as the cause of diseases classified elsewhere; I11.0 Hypertensive heart disease with heart failure; I50.9 Heart failure, unspecified; E11.649 Type 2 diabetes mellitus with hypoglycemia without coma; E11.65 Type 2 diabetes mellitus with hyperglycemia; J98.11 Atelectasis; E66.01 Morbid (severe) obesity due to excess calories; Z68.41 Body mass index [BMI] 40.0-44.9, adult; D72.829 Elevated white blood cell count, unspecified; T38.0X5A Adverse effect of glucocorticoids and synthetic analogues, initial encounter; J44.9 Chronic obstructive pulmonary disease, unspecified; L97.929 Non-pressure chronic ulcer of unspecified part of left lower leg with unspecified severity; I27.20 Pulmonary hypertension, unspecified; G89.29 Other chronic pain; M54.5 Low back pain; E78.5 Hyperlipidemia, unspecified; E03.9 Hypothyroidism, unspecified; G82.20 Paraplegia, unspecified; H54.8 Legal blindness, as defined in USA; I48.91 Unspecified atrial fibrillation; K21.9 Gastro-esophageal reflux disease without esophagitis; N39.498 Other specified urinary incontinence; Z86.73 Personal history of transient ischemic attack (TIA), and cerebral infarction without residual deficits; Z79.4 Long term (current) use of insulin; Z90.710 Acquired absence of both cervix and uterus; Z91.19 Patient's noncompliance with other medical treatment and regimen; Z60.2 Problems related to living alone; Z88.9 Allergy status to unspecified drugs, medicaments and biological substances
CPT/HCPCS: 71046; 73560; 80048; 81003; 82800; 82948; 83036; 83605; 83735; 83880; 83930; 84484; 85025; 85027; 87040; 87070; 87075; 87077; 87086; 87186; 87205; 87449; 93005; 94640; 94640 76; 94799; 99202; 99281; 99285; A6212; J0692; J1644; J1815; J1885; J1940; J1956; J2405; J2930; J7030; Q0164

== ENCOUNTER 2018-02-01 18:11 | Inpatient (IN) | payer OTHER ==
[~2018-02-01] VITALS: Ht 162.6 cm; Wt 109.5 kg
[~2018-02-01 18:11] MED LIST changes: +HYDROCORTISONE30 G1 TP; +LEVAQUIN750 MG PO; +MORPHINE SULFAT60 MG PO; +TRAMADOL HCL50 MG PO
[2018-02-01 20:29] LABS: BASOPHIL (%) 0.1 % (0-1); EOSINOPHIL (%) 1.1 % (0-5); EOSINOPHIL COUNT 0.1 K/uL (0-0.3); HEMATOCRIT 38.2 % (36.0-46.0); HEMOGLOBIN 12.7 G/DL (11.9-15.5); IMMATURE GRANULOCYTE (%) 0.5 % (0.0-0.7); LYMPHOCYTE (%) 10.9 % (15-42); MCH 27.7 PG (29.0-34.0); MCHC 33.2 G/DL (30.0-36.0); MCV 83.4 FL (83-99); MONOCYTE (%) 7.2 % (3-12); MONOCYTE COUNT 0.7 K/uL (0-0.8); NEUTROPHIL (%) 80.2 % (45-76); NEUTROPHIL COUNT 7.4 K/uL (1.8-6.4); PLATELET COUNT 185 K/uL (156-360); RBC DIS.WIDTH-SD 42.6 % (39-53); RED BLOOD COUNT 4.58 M/uL (3.80-5.20); WHITE BLOOD COUNT 9.3 K/uL (4.1-10.2)
[2018-02-01 20:35] LABS: ALBUMIN 3.5 g/dL (3.2-4.8); CHLORIDE 97 mEq/L (99-109); POTASSIUM 4.4 mEq/L (3.7-5.4); SODIUM 133 mEq/L (136-147)
[2018-02-01 20:36] LABS: MAGNESIUM 1.8 mg/dL (1.3-2.7)
[2018-02-01 20:38] LABS: TOTAL PROTEIN 6.1 g/dL (6.4-8.3)
[2018-02-01 20:39] LABS: PTT 24.7 SEC (25-37)
[2018-02-01 20:40] LABS: TOTAL BILIRUBIN 0.4 mg/dL (0.0-1.0)
[2018-02-01 20:41] LABS: ALKALINE PHOSPHATASE 128 IU/L (3-129)
[2018-02-01 20:42] LABS: CREATININE 1.2 mg/dL (0.6-1.3); GFR ESTIMATE (CALCULATED) 46 mL/min/
[2018-02-01 20:43] LABS: AST (GOT) 9 IU/L (2-34); UREA NITROGEN (BUN) 11 mg/dL (9-23)
[2018-02-01 20:44] LABS: ALT (GPT) 12 IU/L (3-49)
[2018-02-01 20:48] LABS: GLUCOSE 633 mg/dL (70-99)
[2018-02-01 20:49] LABS: TROP-I INTERPRETATION NEGATIVE; TROPONIN-I 0.01 ng/mL (0.0-0.30)
[2018-02-01 21:20] LABS: APPEARANCE CLEAR ((CLEAR)); BILIRUBIN NEGATIVE; BLOOD NEGATIVE; COLOR STRAW ((YELLOW)); GLUCOSE (STRIP) >=500; KETONES 5; LEUKOCYTES NEGATIVE; NITRITE NEGATIVE; PROTEIN (STRIP) NEGATIVE; SPECIFIC GRAVITY 1.029 (1.000-1.030); UCUL ADDED? NO; UROBILINOGEN 0.2 MG/DL (0.2-1.0)
[2018-02-02 02:17] VITALS: BP 176/84
[2018-02-02 04:31] VITALS: BP 170/73
[2018-02-02 07:28] LABS: HEMATOCRIT 37.2 % (36.0-46.0); HEMOGLOBIN 12.2 G/DL (11.9-15.5); MCH 27.5 PG (29.0-34.0); MCHC 32.8 G/DL (30.0-36.0); MCV 83.8 FL (83-99); PLATELET COUNT 169 K/uL (156-360); RBC DIS.WIDTH-CV 14.2 % (11.8-14.6); RBC DIS.WIDTH-SD 43.6 % (39-53); RED BLOOD COUNT 4.44 M/uL (3.80-5.20); WHITE BLOOD COUNT 6.4 K/uL (4.1-10.2)
[2018-02-02 08:03] LABS: ALBUMIN 3.3 G/DL (3.2-4.8); ALKALINE PHOSPHATASE 98 IU/L (3-129); ALT (GPT) 8 IU/L (3-49); AST (GOT) < 7 IU/L (2-34); CHLORIDE 96 MEQ/L (99-109); CREATININE 0.8 MG/DL (0.6-1.3); GFR ESTIMATE (CALCULATED) > 59 mL/min/; GLUCOSE 499 mg/dL (70-99); POTASSIUM 3.9 MEQ/L (3.7-5.4); SODIUM 133 MEQ/L (136-147); TOTAL BILIRUBIN 0.6 MG/DL (0.0-1.0); TOTAL PROTEIN 5.3 G/DL (6.4-8.3); UREA NITROGEN (BUN) 10 mg/dL (9-23)
[2018-02-02 08:23] VITALS: BP 160/84
[2018-02-02 11:58] VITALS: BP 130/66
[2018-02-02 16:19] VITALS: BP 137/61
[2018-02-02 20:00] VITALS: BP 128/53
[2018-02-03 00:19] VITALS: BP 122/58
[2018-02-03 03:35] VITALS: BP 140/67
[2018-02-03 06:14] LABS: BASOPHIL (%) 0 % (0-1); EOSINOPHIL (%) 3.3 % (0-5); EOSINOPHIL COUNT 0.2 K/uL (0-0.3); HEMATOCRIT 35.6 % (36.0-46.0); HEMOGLOBIN 11.7 G/DL (11.9-15.5); IMMATURE GRANULOCYTE (%) 0.5 % (0.0-0.7); LYMPHOCYTE (%) 14.5 % (15-42); LYMPHOCYTE COUNT 0.9 K/uL (1.0-2.8); MCH 27.7 PG (29.0-34.0); MCHC 32.9 G/DL (30.0-36.0); MCV 84.2 FL (83-99); MONOCYTE (%) 8.9 % (3-12); MONOCYTE COUNT 0.6 K/uL (0-0.8); NEUTROPHIL (%) 72.8 % (45-76); NEUTROPHIL COUNT 4.6 K/uL (1.8-6.4); PLATELET COUNT 170 K/uL (156-360); RBC DIS.WIDTH-CV 14.4 % (11.8-14.6); RED BLOOD COUNT 4.23 M/uL (3.80-5.20); WHITE BLOOD COUNT 6.3 K/uL (4.1-10.2)
[2018-02-03 06:41] LABS: CHLORIDE 101 MEQ/L (99-109); CREATININE 0.9 MG/DL (0.6-1.3); GFR ESTIMATE (CALCULATED) > 59 mL/min/; SODIUM 136 MEQ/L (136-147); UREA NITROGEN (BUN) 16 mg/dL (9-23)
[2018-02-03 06:45] LABS: GLUCOSE 243 mg/dL (70-99); POTASSIUM 4.7 MEQ/L (3.7-5.4)
[2018-02-03 08:27] VITALS: BP 142/64
[2018-02-03 11:37] VITALS: BP 134/68
[2018-02-03 18:55] VITALS: BP 162/71
[2018-02-04 03:49] VITALS: BP 137/63
[2018-02-04 07:02] LABS: BASOPHIL (%) 0 % (0-1); EOSINOPHIL (%) 2.3 % (0-5); EOSINOPHIL COUNT 0.2 K/uL (0-0.3); HEMATOCRIT 36.5 % (36.0-46.0); HEMOGLOBIN 11.9 G/DL (11.9-15.5); IMMATURE GRANULOCYTE (%) 0.7 % (0.0-0.7); LYMPHOCYTE (%) 14.6 % (15-42); LYMPHOCYTE COUNT 1.1 K/uL (1.0-2.8); MCH 27.2 PG (29.0-34.0); MCHC 32.6 G/DL (30.0-36.0); MCV 83.5 FL (83-99); MONOCYTE (%) 8.8 % (3-12); MONOCYTE COUNT 0.6 K/uL (0-0.8); NEUTROPHIL (%) 73.6 % (45-76); NEUTROPHIL COUNT 5.4 K/uL (1.8-6.4); PLATELET COUNT 189 K/uL (156-360); RBC DIS.WIDTH-CV 14.2 % (11.8-14.6); RBC DIS.WIDTH-SD 43.4 % (39-53); RED BLOOD COUNT 4.37 M/uL (3.80-5.20); WHITE BLOOD COUNT 7.3 K/uL (4.1-10.2)
[2018-02-04 07:26] LABS: CHLORIDE 106 MEQ/L (99-109); CREATININE 0.7 MG/DL (0.6-1.3); GFR ESTIMATE (CALCULATED) > 59 mL/min/; POTASSIUM 4.1 MEQ/L (3.7-5.4); SODIUM 139 MEQ/L (136-147); UREA NITROGEN (BUN) 13 mg/dL (9-23)
[2018-02-04 07:34] LABS: GLUCOSE 110 mg/dL (70-99)
[2018-02-04 08:07] VITALS: BP 132/88
[2018-02-04] MEDS ORDERED: LANTUS 3 M100 UNITS1 SC (13:11)
[2018-02-04] MEDS ORDERED: DOXYCYCLINE HY100 MG PO (13:37)
[2018-02-04 16:11] VITALS: BP 133/70
== END 2018-02-04 14:05 | disposition home health service (06) | DRG 603 ==
LOC: EME 18:11 → 2EAST 02-02 00:40 → EDOF 02-02 00:40 → ENRESERV 02-02 00:45 → 2EAST 02-02 01:51
PROVIDERS: Emergency Medicine; Internal Medicine
DX: L03.116 Cellulitis of left lower limb (principal); L03.115 Cellulitis of right lower limb; E11.65 Type 2 diabetes mellitus with hyperglycemia; B96.5 Pseudomonas (aeruginosa) (mallei) (pseudomallei) as the cause of diseases classified elsewhere; G82.20 Paraplegia, unspecified; I11.0 Hypertensive heart disease with heart failure; H54.8 Legal blindness, as defined in USA; E03.9 Hypothyroidism, unspecified; I50.1 Left ventricular failure, unspecified; I48.91 Unspecified atrial fibrillation; E78.5 Hyperlipidemia, unspecified; E11.622 Type 2 diabetes mellitus with other skin ulcer; F32.9 Major depressive disorder, single episode, unspecified; G89.29 Other chronic pain; K21.9 Gastro-esophageal reflux disease without esophagitis; H40.9 Unspecified glaucoma; I87.2 Venous insufficiency (chronic) (peripheral); L97.929 Non-pressure chronic ulcer of unspecified part of left lower leg with unspecified severity; I25.10 Atherosclerotic heart disease of native coronary artery without angina pectoris; I89.0 Lymphedema, not elsewhere classified; J44.9 Chronic obstructive pulmonary disease, unspecified; F10.10 Alcohol abuse, uncomplicated; R60.0 Localized edema; L01.00 Impetigo, unspecified; I25.2 Old myocardial infarction; Z86.73 Personal history of transient ischemic attack (TIA), and cerebral infarction without residual deficits; Z95.1 Presence of aortocoronary bypass graft; Z90.710 Acquired absence of both cervix and uterus; Z91.11 Patient's noncompliance with dietary regimen; V89.2XXS Person injured in unspecified motor-vehicle accident, traffic, sequela; Z82.49 Family history of ischemic heart disease and other diseases of the circulatory system; Z82.5 Family history of asthma and other chronic lower respiratory diseases; Z83.3 Family history of diabetes mellitus; Z87.01 Personal history of pneumonia (recurrent); Z79.4 Long term (current) use of insulin
CPT/HCPCS: 73700; 80048; 80053; 80202; 81003; 82948; 83605; 83735; 83880; 84484; 85025; 85027; 85610; 85730; 87040; 87070; 87075; 87077; 87186; 87205; 93005; 94799; 99281; 99285; A6212; J1644; J1815; J1940; J3010; J3370; J7030; J7040